=== PATIENT | male | born 1990 | race African-American/Black ===

== ENCOUNTER 2017-12-21 23:26 | Emergency (ER) | payer SELFPAY ==
[2017-12-21 23:47] VITALS: BP 105/72; PULSE 53; O2SAT 99
[2017-12-22] MEDS: Sodium Chloride 0.9% 1000 ML 1,000 ML IV STA ×2 (00:09→01:35)
[2017-12-22] MEDS ORDERED: Sodium Chloride 0.9% 1000 ML 0 ML ONE (00:10)
--- NOTE | 2017-12-22 00:12 | ERPHSYRPT ---
- History of Present Illness Time Seen by Provider: 12/22/17 00:00 Source: patient, police Exam Limitations: no limitations Patient Subjective Stated Complaint: weakness, hunger, soemone gave him 2 gummy bears laced with drugs Triage Nursing Assessment: Pt A&O x3, brought in by EMS and stated that he last ate yesterday morning, has been walking around for several days, someone gave him 2 gummy bears and he feels that they were laced with some kind of drug, he became suddenly weak and had to sit down in the road, he stated that he couldn' t move at that time, vitals wnl except for pulse of 45, pulses normal, tearful, doesn't appear to be in any distress at this time Physician History: 27 y/o male brought in by police after being found at the side of the road on the floor. Pt states that he was given gummies that made him feel confused, with gait instability, weakness and dizziness. Pt last ate yesterday morning. In the ER, patient feels better and more alert and oriented. Pt does not remember falling or hitting his head. Pt is very anxious about his brother and social issues. Timing/Duration: today Severity: mild Associated Symptoms: denies symptoms Allergies/Adverse Reactions: No Known Drug Allergies Allergy (Verified 12/21/17 23:47) Home Medications: No Reportable Medications [No Reported Medications] 12/21/17 [History] - Review of Systems Constitutional: Weakness, No Fever, No Chills Eyes: No Symptoms Ears, Nose, & Throat: No Symptoms Respiratory: No Cough, No Dyspnea Cardiac: No Chest Pain, No Edema, No Syncope Abdominal/Gastrointestinal: No Abdominal Pain, No Nausea, No Vomiting, No Diarrhea Genitourinary Symptoms: No Dysuria Musculoskeletal: No Back Pain, No Neck Pain Skin: No Rash Neurological: No Dizziness, No Focal Weakness, No Sensory Changes Psychological: No Symptoms Endocrine: No Symptoms All Other Systems: Reviewed and Negative - Past Medical History Pertinent Past Medical History: Yes Psycho-Social History: Depression - Past Surgical History Past Surgical History: No - Social History Smoking Status: Current every day smoker How long have you smoked: 11 years Exposure to second hand smoke: Yes Drug Use: marijuana Patient Lives Alone: No - Nursing Vital Signs Nursing Vital Signs: Initial Vital Signs Temperature 97.5 F 07/09/18 23:28 Pulse Rate 53 L 12/21/17 23:28 Blood Pressure 105/72 12/21/17 23:28 O2 Sat by Pulse Oximetry 99 12/21/17 23:28 Pain Scale Pain Intensity 0 - Physical Exam General Appearance: alert, anxiety Eye Exam: PERRL/EOMI, eyes nml inspection Ears, Nose, Throat Exam: normal ENT inspection, TMs normal, pharynx normal, moist mucous membranes Neck Exam: normal inspection, non-tender, supple, full range of motion Respiratory Exam: normal breath sounds, lungs clear, No respiratory distress Cardiovascular Exam: regular rate/rhythm, normal heart sounds, normal peripheral pulses Gastrointestinal/Abdomen Exam: soft, normal bowel sounds, No tenderness, No mass Back Exam: normal inspection, normal range of motion, No CVA tenderness, No vertebral tenderness Extremity Exam: normal inspection, normal range of motion, pelvis stable Neurologic Exam: alert, oriented x 3, cooperative, normal mood/affect, nml cerebellar function, nml station & gait, sensation nml, No motor deficits Skin Exam: normal color, warm, dry, No rash Lymphatic Exam: No adenopathy SpO2: 99 Oxygen Delivery: Room Air - Course Nursing assessment & vital signs reviewed: Yes EKG Interpreted by Me: Sinus Bello, NORMAL AXIS, NORMAL INTERVALS, NORMAL QRS, NORMAL ST-T Ordered Tests: Active Orders 24 hr Category Date Time Status EKG-ER Only STAT Care 12/22/17 00:12 Active HEAD WITHOUT CONTRAST [CT] Stat Exams 12/22/17 00:07 Taken ACETAMINOPHEN Stat Lab 12/22/17 00:22 Completed CBC W DIFF Stat Lab 12/22/17 00:22 Completed CK-Creatinine Phosphokinase Stat Lab 12/22/17 00:22 Completed CMP Stat Lab 12/22/17 00:22 Completed CULTURE,URINE Stat Lab 12/22/17 00:10 Received ETHYL ALCOHOL Stat Lab 12/22/17 00:22 Completed MAGNESIUM Stat Lab 12/22/17 00:22 Completed SALICYLATE Stat Lab 12/22/17 00:22 Completed TROPONIN Q3H Lab 12/22/17 00:22 Received TROPONIN Q3H Lab 12/22/17 03:15 Ordered TROPONIN Q3H Lab 12/22/17 06:15 Ordered TROPONIN Q3H Lab 12/22/17 09:15 Ordered TROPONIN Q3H Lab 12/22/17 12:15 Ordered TROPONIN Q3H Lab 12/22/17 15:15 Ordered TROPONIN Q3H Lab 12/22/17 18:15 Ordered TROPONIN Q3H Lab 12/22/17 21:15 Ordered UA W/ MICROSCOPIC Stat Lab 12/22/17 00:10 Completed Urine Triage Profile Stat Lab 12/22/17 00:10 Completed Medication Summary Discontinued Medications Generic Name Dose Route Start Last Admin Trade Name Rajni PRN Reason Stop Dose Admin Sodium Chloride 1,000 mls @ 999 mls/hr 12/22/17 00:07 Sodium Chloride 0.9% 1000 Ml IV 12/22/17 01:07 .Q1H1M STA Sodium Chloride Confirm 12/22/17 00:10 Sodium Chloride 0.9% 1000 Ml Administered 12/22/17 00:11 Dose 1,000 mls @ ud .ROUTE .K-MED ONE Lab/Rad Data: Laboratory Result Diagrams 12/22/17 00:22 12/22/17 00:22 Laboratory Results 12/22/17 12/22/17 12/22/17 Range/Units 00:22 00:22 00:10 WBC 7.4 (4.0-10.5) K/mm3 RBC 4.78 (4.1-5.6) M/mm3 Hgb 14.0 (12.5-18.0) gm/dl Hct 42.7 (42-50) % MCV 89.3 (78-100) fl MCH 29.3 (26-32) pg MCHC 32.8 (32-36) g/dl RDW 13.8 (11.5-14.0) % Plt Count 159 (150-450) K/mm3 MPV 9.7 H (6-9.5) fl Gran % 59.0 (36.0-66.0) % Eos # (Auto) 0.10 (0-0.5) Absolute Lymphs (auto) 2.13 (1.0-4.6) Absolute Monos (auto) 0.78 (0.0-1.3) Lymphocytes % 28.9 (24.0-44.0) % Monocytes % 10.6 (0.0-12.0) % Eosinophils % 1.4 (0.00-5.0) % Basophils % 0.1 (0.0-0.4) % Absolute Granulocytes 4.36 (1.4-6.9) Basophils # 0.01 (0-0.4) Sodium 144 (137-145) mmol/L Potassium 3.5 (3.5-5.1) mmol/L Chloride 109 H (98-107) mmol/L Carbon Dioxide 26 (22-30) mmol/L Anion Gap 12.5 (5-15) MEQ/L BUN 11 (9-20) mg/dL Creatinine 1.13 (0.66-1.25) mg/dL Estimated GFR > 60.0 ML/MIN Glucose 94 (74-106) mg/dL Calcium 9.4 (8.4-10.2) mg/dL Magnesium 2.0 (1.6-2.3) mg/dL Total Bilirubin 0.70 (0.2-1.3) mg/dL AST 23 (17-59) U/L ALT 25 (0-50) U/L Alkaline Phosphatase 53 (38-126) U/L Creatine Kinase 250 H (55-170) U/L Serum Total Protein 7.2 (6.3-8.2) g/dL Albumin 4.4 (3.5-5.0) g/dL Ur Collection Type Urine Color (YELLOW) Urine Appearance (CLEAR) Urine pH (5-6) Ur Specific Bluford (1.005-1.025) Urine Protein (Negative) Urine Ketones (NEGATIVE) Urine Blood (0-5) Anil/ul Urine Nitrite (NEGATIVE) Urine Bilirubin (NEGATIVE) Urine Urobilinogen (0-1) mg/dL Ur Leukocyte Esterase (NEGATIVE) Urine Microscopic WBC (0-5) /HPF Ur Epithelial Cells (FEW) /HPF Calcium Oxalate Crystal (NEGATIVE) /HPF Urine Bacteria (NEGATIVE) /HPF Urine Mucus (NEGATIVE) /HPF Urine Culture Reflexed (NO) Urine Glucose (NEGATIVE) mg/dL Salicylates < 1.0 L (2-20) mg/dL Urine Opiates Level NEGATIVE (NEGATIVE) Ur Methadone NEGATIVE (NEGATIVE) Acetaminophen < 10 L (10-30) ug/ml Urine Barbiturates NEGATIVE (NEGATIVE) Ur Phencyclidine (PCP) NEGATIVE (NEGATIVE) Urine Amphetamine NEGATIVE (NEGATIVE) U Benzodiazepine Level POSITIVE (NEGATIVE) Urine Cocaine NEGATIVE (NEGATIVE) Urine Marijuana (THC) POSITIVE (NEGATIVE) Ethyl Alcohol < 10 (0-10) mg/dL Specimen Received 12/22/17 Range/Units 00:10 WBC (4.0-10.5) K/mm3 RBC (4.1-5.6) M/mm3 Hgb (12.5-18.0) gm/dl Hct (42-50) % MCV (78-100) fl MCH (26-32) pg MCHC (32-36) g/dl RDW (11.5-14.0) % Plt Count (150-450) K/mm3 MPV (6-9.5) fl Gran % (36.0-66.0) % Eos # (Auto) (0-0.5) Absolute Lymphs (auto) (1.0-4.6) Absolute Monos (auto) (0.0-1.3) Lymphocytes % (24.0-44.0) % Monocytes % (0.0-12.0) % Eosinophils % (0.00-5.0) % Basophils % (0.0-0.4) % Absolute Granulocytes (1.4-6.9) Basophils # (0-0.4) Sodium (137-145) mmol/L Potassium (3.5-5.1) mmol/L Chloride (98-107) mmol/L Carbon Dioxide (22-30) mmol/L Anion Gap (5-15) MEQ/L BUN (9-20) mg/dL Creatinine (0.66-1.25) mg/dL Estimated GFR ML/MIN Glucose (74-106) mg/dL Calcium (8.4-10.2) mg/dL Magnesium (1.6-2.3) mg/dL Total Bilirubin (0.2-1.3) mg/dL AST (17-59) U/L ALT (0-50) U/L Alkaline Phosphatase (38-126) U/L Creatine Kinase (55-170) U/L Serum Total Protein (6.3-8.2) g/dL Albumin (3.5-5.0) g/dL Ur Collection Type CCMS Urine Color YELLOW (YELLOW) Urine Appearance CLEAR (CLEAR) Urine pH 6.0 (5-6) Ur Specific Bluford 1.025 (1.005-1.025) Urine Protein TRACE (Negative) Urine Ketones NEGATIVE (NEGATIVE) Urine Blood NEGATIVE (0-5) Anil/ul Urine Nitrite NEGATIVE (NEGATIVE) Urine Bilirubin NEGATIVE (NEGATIVE) Urine Urobilinogen NORMAL (0-1) mg/dL Ur Leukocyte Esterase TRACE (NEGATIVE) Urine Microscopic WBC 15-25 (0-5) /HPF Ur Epithelial Cells RARE (FEW) /HPF Calcium Oxalate Crystal 50-99 (NEGATIVE) /HPF Urine Bacteria RARE (NEGATIVE) /HPF Urine Mucus MANY (NEGATIVE) /HPF Urine Culture Reflexed YES (NO) Urine Glucose NEGATIVE (NEGATIVE) mg/dL Salicylates (2-20) mg/dL Urine Opiates Level (NEGATIVE) Ur Methadone (NEGATIVE) Acetaminophen (10-30) ug/ml Urine Barbiturates (NEGATIVE) Ur Phencyclidine (PCP) (NEGATIVE) Urine Amphetamine (NEGATIVE) U Benzodiazepine Level (NEGATIVE) Urine Cocaine (NEGATIVE) Urine Marijuana (THC) (NEGATIVE) Ethyl Alcohol (0-10) mg/dL Specimen Received 12-22-17 0100 - Progress Progress: improved Progress Note: 12/22/17 01:12 The patient feels better after receiving NS fluids. The CT scan head is within normal limits. The labs are within normal limits except for a slightly elevated CPK and positive marijuana in his urine. Pt will be d/c home with a diagnosis of substance use. - Departure Time of Disposition: 01:13 Departure Disposition: Home Clinical Impression: Substance use disorder Condition: Stable Critical Care Time: No Referrals: DOCTOR,NO FAMILY [Primary Care Provider] - Instructions: Polysubstance Abuse (DC) Additional Instructions: Return to the ER if you should have worsening dizziness, weakness, muscle aches , chest pain or shortness of breath.
[2017-12-22 00:24] LABS: BASOPHIL % 0.1 % (0.0-0.4); Basophil (Absolute #) 0.01 (0-0.4); Eosinophil % 1.4 % (0.00-5.0); Granulocyte Absolute (ANC) 4.36 (1.4-6.9); Hematocrit 42.7 % (42-50); Lymphocyte (Absolute #) 2.13 (1.0-4.6); Lymphocytes % 28.9 % (24.0-44.0); Mean Cell Volume 89.3 fl (78-100); Mean Corpuscular Hemoglobin 29.3 pg (26-32); Mean Corpuscular Hgb Concent. 32.8 g/dl (32-36); Mean Platelet Volume 9.7 fl (6-9.5); Monocyte (Absolute #) 0.78 (0.0-1.3); Monocytes % 10.6 % (0.0-12.0); Platelet Count 159 K/mm3 (150-450); Red Blood Count 4.78 M/mm3 (4.1-5.6); Red Cell Distribution Width 13.8 % (11.5-14.0); White Blood Count 7.4 K/mm3 (4.0-10.5)
[2017-12-22 00:50] LABS: ALBUMIN 4.4 g/dL (3.5-5.0); ALKALINE PHOSPHATASE 53 U/L (38-126); ANION GAP 12.5 MEQ/L (5-15); BLOOD UREA NITROGEN 11 mg/dL (9-20); CHLORIDE 109 mmol/L (98-107); CK-Creatinine Phosphokinase 250 U/L (55-170); Calcium 9.4 mg/dL (8.4-10.2); Carbon Dioxide 26 mmol/L (22-30); Creatinine 1 1.13 mg/dL (0.66-1.25); Glucose 94 mg/dL (74-106); Potassium 3.5 mmol/L (3.5-5.1); SGOT/AST 23 U/L (17-59); SGPT/ALT 25 U/L (0-50); SODIUM 144 mmol/L (137-145); Total Protein 7.2 g/dL (6.3-8.2)
[2017-12-22 00:54] LABS: Amphetamine,Urine NEGATIVE (NEGATIVE); Barbiturate,Urine NEGATIVE (NEGATIVE); Benzodiazepine,Urine POSITIVE (NEGATIVE); Cocaine,Urine NEGATIVE (NEGATIVE); Methadone,Urine NEGATIVE (NEGATIVE); Opiate,Urine NEGATIVE (NEGATIVE); PCP,Urine NEGATIVE (NEGATIVE); THC,Urine POSITIVE (NEGATIVE)
[2017-12-22 00:58] LABS: ACETAMINOPHEN < 10 ug/ml (10-30); ETHYL ALCOHOL < 10 mg/dL (0-10); SALICYLATE < 1.0 mg/dL (2-20)
[2017-12-22 01:04] LABS: Appearance CLEAR (CLEAR)
[2017-12-22 01:05] LABS: Bilirubin NEGATIVE (NEGATIVE); Blood NEGATIVE Ery/ul (0-5); Glucose NEGATIVE (NEGATIVE); Ketones NEGATIVE (NEGATIVE); Leukocyte Esterase TRACE (NEGATIVE); Nitrite NEGATIVE (NEGATIVE); Protein,Urine Dip TRACE (Negative); Specific Gravity 1.025 (1.005-1.025); Urobilinogen NORMAL mg/dL (0-1)
[2017-12-22 01:06] LABS: Bacteria RARE /HPF (NEGATIVE); Epithelial Cells RARE /HPF (FEW); Mucus MANY /HPF (NEGATIVE); WBC 15-25 /HPF (0-5)
--- NOTE | 2017-12-22 17:19 | XRAY ---
Exam: CT of the head without IV contrast from 12/22/2017. CTDI: 69.79 Comparison: None. Indication: 27-year-old male with altered mental status/memory loss, confusion/disorientation. Technique: Non-IV contrast axial images were obtained through the brain. Reconstructed coronal and sagittal images were created and reviewed. Findings: The ventricles appear of normal size. No focal mass effect or midline shift is seen. No acute intra-cranial bleed or abnormal extra-axial fluid collection is seen. The howard matter-white matter interfaces appear unremarkable. No low attenuation territorial infarct is seen. The cortical sulci and basilar cisterns appear unremarkable. The calvarium of the skull appears intact. The visualized paranasal sinuses and mastoid air cells appear clear. The globes of each eye and retro-orbital regions appear unremarkable bilaterally. Impression: 1. No acute intracranial bleed or other acute intracranial process is seen.
== END 2017-12-22 01:36 | disposition home or self-care (01) ==
LOC: ED 23:26
DX: F19.99 Other psychoactive substance use, unspecified with unspecified psychoactive substance-induced disorder (principal); R53.1 Weakness; R42 Dizziness and giddiness; R41.0 Disorientation, unspecified
CPT/HCPCS: 70450; 80053; 80307; 81000; 82550; 83735; 85025; 87086; 93005; 99284; G0481; G0480

== ENCOUNTER 2020-12-18 19:53 | Emergency (ER) | payer OTHER ==
--- NOTE | 2020-12-18 20:05 | ERPHSYRPT ---
- History of Present Illness Time Seen by Provider: 12/18/20 20:05 Source: patient, police Exam Limitations: no limitations Physician History: This is a 30-year-old -[place] gentleman resident of the senior living who presents to the emergency department via EMS for allegedly consuming approximately 200 mL of diluted peroxide the protein remover paper cleaner and white in her within an hour prior to arrival to the emergency department. However, patient is denying that he consumed this liquid. He states that there was another inmate that made the claim to the cargo checker. Poison Control Center was called. We we called the Poison Control Center to obtain plan of care for this patient. Poison control center stated to assume that the patient did consume this liquid. We need to draw CBC CMP BNP and perform an EKG. Do a toxicology screen and may possibly require GI consultation for determination whether or not this patient will require a endoscopy. Patient denies chest pain. He denies abdominal pain. He states that he is not suicidal although he is upset that he and his girlfriend have broken up. 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 Timing/Duration: today, other (Patient denies any symptoms) Associated Symptoms: denies symptoms Allergies/Adverse Reactions: No Known Drug Allergies Allergy (Verified 12/18/20 20:06) Home Medications: Sertraline HCl [Zoloft] 150 mg PO DAILY 12/18/20 [History] Travel Risk - International Travel Have you traveled outside of the country in past 3 weeks: No - Coronavirus Screening Are you exhibiting any of the following symptoms?: No Close contact with a COVID-19 positive Pt in past 14-21 Days: No - Review of Systems Constitutional: No Symptoms Eyes: No Symptoms Ears, Nose, & Throat: No Symptoms Respiratory: No Symptoms Cardiac: No Symptoms Abdominal/Gastrointestinal: No Symptoms Genitourinary Symptoms: No Symptoms Musculoskeletal: No Symptoms Skin: No Symptoms Neurological: No Symptoms Psychological: No Symptoms Endocrine: No Symptoms Hematologic/Lymphatic: No Symptoms Immunological/Allergic: No Symptoms All Other Systems: Reviewed and Negative - Past Medical History Pertinent Past Medical History: Yes Psycho-Social History: Depression - Past Surgical History Past Surgical History: No - Social History Smoking Status: Current every day smoker How long have you smoked: 11 years Exposure to second hand smoke: Yes Drug Use: marijuana Patient Lives Alone: No - Nursing Vital Signs Nursing Vital Signs: Initial Vital Signs Temperature 98.3 F 12/18/20 20:07 Pulse Rate 84 12/18/20 20:07 Blood Pressure 121/77 12/18/20 20:07 O2 Sat by Pulse Oximetry 96 12/18/20 20:07 - Physical Exam General Appearance: no apparent distress, alert Eye Exam: PERRL/EOMI, eyes nml inspection Ears, Nose, Throat Exam: normal ENT inspection, moist mucous membranes Neck Exam: normal inspection, non-tender, supple, full range of motion Respiratory Exam: normal breath sounds, lungs clear, airway intact, No chest tenderness, No respiratory distress Cardiovascular Exam: regular rate/rhythm, normal heart sounds, normal peripheral pulses Gastrointestinal/Abdomen Exam: soft, normal bowel sounds, No tenderness Rectal Exam: not done Back Exam: normal inspection, normal range of motion, vertebral tenderness, No CVA tenderness Extremity Exam: normal inspection, normal range of motion, pelvis stable Neurologic Exam: alert, oriented x 3, cooperative, pharmaceutical process engineer II-XII nml as tested, normal mood/affect, nml cerebellar function, nml station & gait, sensation nml Skin Exam: normal color, warm, dry Lymphatic Exam: No adenopathy SpO2 Interpretation: normal O2 Delivery: Room Air - Course Nursing assessment & vital signs reviewed: Yes EKG Interpreted by Me: RATE (74), Sinus Rhythm, NORMAL AXIS, NORMAL INTERVALS, NORMAL QRS, NORMAL ST-T, Other (There are no acute ischemic changes on today's EKG. There is no comparison EKG available.) Ordered Tests: Active Orders 24 hr Category Date Time Status Clean Catch Urine Specimen STAT Care 12/18/20 20:24 Active EKG-ER Only STAT Care 12/18/20 20:24 Active IV Insertion STAT Care 12/18/20 20:24 Active Pulse Oximetry (ED) STAT Care 12/18/20 20:24 Active ACETAMINOPHEN Stat Lab 12/18/20 20:35 Completed BNP [NT PRO BNP] Stat Lab 12/18/20 20:35 Completed CBC W DIFF Stat Lab 12/18/20 20:35 Completed CMP Stat Lab 12/18/20 20:35 Completed ETHYL ALCOHOL Stat Lab 12/18/20 20:35 Completed SALICYLATE Stat Lab 12/18/20 20:35 Completed UA W/RFX UR CULTURE Stat Lab 12/18/20 20:47 Completed Urine Triage Profile Stat Lab 12/18/20 20:47 Completed Medication Summary Discontinued Medications Generic Name Dose Route Start Last Admin Trade Name Rajni PRN Reason Stop Dose Admin Sodium Chloride 1,000 mls @ 999 mls/hr 12/18/20 20:24 12/18/20 21:56 Sodium Chloride 0.9% 1000 Ml IV 12/18/20 21:24 Infused .Q1H1M STA Infusion Sodium Chloride Confirm 12/18/20 20:27 Sodium Chloride 0.9% 1000 Ml Administered 12/18/20 20:28 Dose 1,000 mls @ ud .ROUTE .STK-MED ONE Lab/Rad Data: Laboratory Result Diagrams 12/18/20 20:35 12/18/20 20:35 Laboratory Results 12/18/20 12/18/20 12/18/20 Range/Units 20:47 20:47 20:35 WBC (4.0-10.5) K/mm3 RBC (4.1-5.6) M/mm3 Hgb (12.5-18.0) gm/dl Hct (42-50) % MCV (78-100) fl MCH (26-32) pg MCHC (32-36) g/dl RDW (11.5-14.0) % Plt Count (150-450) K/mm3 MPV (7.5-11.0) fl Gran % (36.0-66.0) % Eos # (Auto) (0-0.5) Absolute Lymphs (auto) (1.0-4.6) Absolute Monos (auto) (0.0-1.3) Lymphocytes % (24.0-44.0) % Monocytes % (0.0-12.0) % Eosinophils % (0.00-5.0) % Basophils % (0.0-0.4) % Absolute Granulocytes (1.4-6.9) Basophils # (0-0.4) Sodium (137-145) mmol/L Potassium (3.5-5.1) mmol/L Chloride (98-107) mmol/L Carbon Dioxide (22-30) mmol/L Anion Gap (5-15) MEQ/L BUN (9-20) mg/dL Creatinine (0.66-1.25) mg/dL Estimated GFR ML/MIN Glucose (74-106) mg/dL Calcium (8.4-10.2) mg/dL Total Bilirubin (0.2-1.3) mg/dL AST (17-59) U/L ALT (0-50) U/L Alkaline Phosphatase (38-126) U/L NT-Pro-B Natriuret Pep 30.4 (0-450) pg/mL Serum Total Protein (6.3-8.2) g/dL Albumin (3.5-5.0) g/dL Urine Color YUAN (YELLOW) Urine Appearance SLIGHTLY CLOUDY (CLEAR) Urine pH 5.0 (5-6) Ur Specific Dolph 1.030 (1.005-1.025) Urine Protein 100 (Negative) Urine Ketones NEGATIVE (NEGATIVE) Urine Blood NEGATIVE (0-5) Anil/ul Urine Nitrite NEGATIVE (NEGATIVE) Urine Bilirubin NEGATIVE (NEGATIVE) Urine Urobilinogen 4 (0-1) mg/dL Ur Leukocyte Esterase NEGATIVE (NEGATIVE) Urine WBC (Auto) 3-5 (0-5) /HPF Urine RBC (Auto) NONE (0-2) /HPF U Epithel Cells (Auto) NONE (FEW) /HPF Urine Bacteria (Auto) NONE (NEGATIVE) /HPF Urine Mucus (Auto) MANY (NEGATIVE) /HPF Urine Culture Reflexed NO (NO) Urine Glucose NEGATIVE (NEGATIVE) mg/dL Salicylates (2-20) mg/dL Urine Opiates Level NEGATIVE (NEGATIVE) Ur Methadone NEGATIVE (NEGATIVE) Acetaminophen (10-30) ug/ml Urine Barbiturates NEGATIVE (NEGATIVE) Ur Phencyclidine (PCP) NEGATIVE (NEGATIVE) Urine Amphetamine NEGATIVE (NEGATIVE) U Benzodiazepine Level NEGATIVE (NEGATIVE) Urine Cocaine NEGATIVE (NEGATIVE) Urine Marijuana (THC) NEGATIVE (NEGATIVE) Ethyl Alcohol (0-10) mg/dL 12/18/20 12/18/20 Range/Units 20:35 20:35 WBC 8.9 (4.0-10.5) K/mm3 RBC 4.76 (4.1-5.6) M/mm3 Hgb 13.8 (12.5-18.0) gm/dl Hct 42.5 (42-50) % MCV 89.3 (78-100) fl MCH 29.0 (26-32) pg MCHC 32.5 (32-36) g/dl RDW 13.0 (11.5-14.0) % Plt Count 174 (150-450) K/mm3 MPV 10.1 (7.5-11.0) fl Gran % 75.0 H (36.0-66.0) % Eos # (Auto) 0.04 (0-0.5) Absolute Lymphs (auto) 1.45 (1.0-4.6) Absolute Monos (auto) 0.72 (0.0-1.3) Lymphocytes % 16.3 L (24.0-44.0) % Monocytes % 8.1 (0.0-12.0) % Eosinophils % 0.5 (0.00-5.0) % Basophils % 0.1 (0.0-0.4) % Absolute Granulocytes 6.66 (1.4-6.9) Basophils # 0.01 (0-0.4) Sodium 137 (137-145) mmol/L Potassium 3.7 (3.5-5.1) mmol/L Chloride 100 (98-107) mmol/L Carbon Dioxide 24 (22-30) mmol/L Anion Gap 16.6 H (5-15) MEQ/L BUN 15 (9-20) mg/dL Creatinine 0.90 (0.66-1.25) mg/dL Estimated GFR > 60.0 ML/MIN Glucose 97 (74-106) mg/dL Calcium 9.5 (8.4-10.2) mg/dL Total Bilirubin 0.70 (0.2-1.3) mg/dL AST 49 (17-59) U/L ALT 78 H (0-50) U/L Alkaline Phosphatase 70 (38-126) U/L NT-Pro-B Natriuret Pep (0-450) pg/mL Serum Total Protein 8.1 (6.3-8.2) g/dL Albumin 4.8 (3.5-5.0) g/dL Urine Color (YELLOW) Urine Appearance (CLEAR) Urine pH (5-6) Ur Specific Dolph (1.005-1.025) Urine Protein (Negative) Urine Ketones (NEGATIVE) Urine Blood (0-5) Anil/ul Urine Nitrite (NEGATIVE) Urine Bilirubin (NEGATIVE) Urine Urobilinogen (0-1) mg/dL Ur Leukocyte Esterase (NEGATIVE) Urine WBC (Auto) (0-5) /HPF Urine RBC (Auto) (0-2) /HPF U Epithel Cells (Auto) (FEW) /HPF Urine Bacteria (Auto) (NEGATIVE) /HPF Urine Mucus (Auto) (NEGATIVE) /HPF Urine Culture Reflexed (NO) Urine Glucose (NEGATIVE) mg/dL Salicylates < 1.0 L (2-20) mg/dL Urine Opiates Level (NEGATIVE) Ur Methadone (NEGATIVE) Acetaminophen < 10 L (10-30) ug/ml Urine Barbiturates (NEGATIVE) Ur Phencyclidine (PCP) (NEGATIVE) Urine Amphetamine (NEGATIVE) U Benzodiazepine Level (NEGATIVE) Urine Cocaine (NEGATIVE) Urine Marijuana (THC) (NEGATIVE) Ethyl Alcohol < 10 (0-10) mg/dL - Progress Progress: unchanged, re-examined Progress Note: 12/18/20 22:49 Medical decision making: This patient adamantly denies any ingestion of any fluids. His friend had contacted the jailers because he was concerned that the patient was so sad and tearful that he thought he might have done something to himself. However, the patient states he is not suicidal and that he did not cut himself. They were wrestling to get a bottle out of his hands. I reevaluated the patient. He has no chest pain. He has no shortness of breath. He has no abdominal pain. The patient has been here for approximately 3 hours and has no complaints of pain. He is drinking clear liquids. I reevaluated his throat and I did not see any pharyngeal blistering or oral mucosal blistering. There is no redness present. My plan is to discharge the patient to home if he tolerates drinking clear liquids without any pain, nausea or vomiting. The patient denies any ingestion of fluid or suicide attempt. This was witnessed by the officer here at the hospital in the patient's room as well as the nurses. 12/18/20 22:51 Counseled pt/family regarding: lab results, diagnosis, need for follow-up - Departure Departure Disposition: [facility] Clinical Impression: Well adult health check Condition: Stable Critical Care Time: No Referrals: DOCTOR,NO FAMILY [Primary Care Provider] - Additional Instructions: Drink plenty of clear liquids. Return to the emergency department if you began having symptoms of sore throat, nausea vomiting or abdominal pain.
[2020-12-18] MEDS ORDERED: Sodium Chloride 0.9% 1000 ML 1,000 ML IV STA (20:24)
[2020-12-18] MEDS ORDERED: Sodium Chloride 0.9% 1000 ML 1,000 ML ONE (20:27)
[2020-12-18 20:54] LABS: ACETAMINOPHEN < 10 ug/ml (10-30); ALBUMIN 4.8 g/dL (3.5-5.0); ALKALINE PHOSPHATASE 70 U/L (38-126); ANION GAP 16.6 MEQ/L (5-15); BLOOD UREA NITROGEN 15 mg/dL (9-20); CHLORIDE 100 mmol/L (98-107); Calcium 9.5 mg/dL (8.4-10.2); Carbon Dioxide 24 mmol/L (22-30); EST GLOMERULAR FILTRATION RATE > 60.0 ML/MIN; ETHYL ALCOHOL < 10 mg/dL (0-10); Glucose 97 mg/dL (74-106); Potassium 3.7 mmol/L (3.5-5.1); SALICYLATE < 1.0 mg/dL (2-20); SGOT/AST 49 U/L (17-59); SGPT/ALT 78 U/L (0-50); SODIUM 137 mmol/L (137-145); Total Protein 8.1 g/dL (6.3-8.2)
[2020-12-18 21:03] LABS: Absolute Neutrophil Ct (ANC) 6.66 (1.4-6.9); BASOPHIL % 0.1 % (0.0-0.4); Basophil (Absolute #) 0.01 (0-0.4); Eosinophil % 0.5 % (0.00-5.0); Eosinophil (Absolute #) 0.04 (0-0.5); Hematocrit 42.5 % (42-50); Hemoglobin 13.8 gm/dl (12.5-18.0); Lymphocyte (Absolute #) 1.45 (1.0-4.6); Lymphocytes % 16.3 % (24.0-44.0); Mean Cell Volume 89.3 fl (78-100); Mean Corpuscular Hgb Concent. 32.5 g/dl (32-36); Mean Platelet Volume 10.1 fl (7.5-11.0); Monocyte (Absolute #) 0.72 (0.0-1.3); Monocytes % 8.1 % (0.0-12.0); Platelet Count 174 K/mm3 (150-450); Red Blood Count 4.76 M/mm3 (4.1-5.6); White Blood Count 8.9 K/mm3 (4.0-10.5)
[2020-12-18 21:31] LABS: Appearance SLIGHTLY CLOUDY (CLEAR); Bilirubin NEGATIVE (NEGATIVE); Blood NEGATIVE Ery/ul (0-5); Glucose NEGATIVE (NEGATIVE); Ketones NEGATIVE (NEGATIVE); Leukocyte Esterase NEGATIVE (NEGATIVE); Mucus MANY /HPF (NEGATIVE); Nitrite NEGATIVE (NEGATIVE); Protein,Urine Dip 100 (Negative); Urobilinogen 4 mg/dL (0-1)
[2020-12-18 22:06] LABS: Amphetamine,Urine NEGATIVE (NEGATIVE); Barbiturate,Urine NEGATIVE (NEGATIVE); Benzodiazepine,Urine NEGATIVE (NEGATIVE); Cocaine,Urine NEGATIVE (NEGATIVE); Methadone,Urine NEGATIVE (NEGATIVE); Opiate,Urine NEGATIVE (NEGATIVE); PCP,Urine NEGATIVE (NEGATIVE); THC,Urine NEGATIVE (NEGATIVE)
[2020-12-18 22:59] VITALS: BP 121/77; PULSE 72; O2SAT 97
== END 2020-12-18 23:04 | disposition home or self-care (01) ==
LOC: ED 19:53 → EEVIPCON 19:53 → ED 23:04
DX: Z03.89 Encounter for observation for other suspected diseases and conditions ruled out (principal); Z79.899 Other long term (current) drug therapy
CPT/HCPCS: 36000; 36415; 80053; 80307; 81001; 83880; 85025; 93005; 94760; 96360; 99284; G0480

== ENCOUNTER 2021-12-09 20:15 | Emergency (ER) | payer OTHER ==
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
[2021-12-09 20:30] VITALS: BP 117/74; PULSE 69; O2SAT 100
[2021-12-09] MEDS ORDERED: MOTRIN 600 MG PO ONE (20:46)
[2021-12-09] MEDS ORDERED: NORCO 5/325 MG PO ONE (20:46)
[2021-12-09] MEDS ORDERED: MOTRIN 600 MG ONE (20:49)
--- NOTE | 2021-12-10 08:43 | XRAY ---
Indication: Pain following injury. Comparison: None 3 view left wrist obtained. No bony, articular, or soft tissue abnormalities.
== END 2021-12-09 21:00 | disposition home or self-care (01) ==
LOC: ED 20:15
DX: S63.502A Unspecified sprain of left wrist, initial encounter (principal); X50.0XXA Overexertion from strenuous movement or load, initial encounter; Y93.43 Activity, gymnastics; M25.532 Pain in left wrist; Z72.0 Tobacco use; Z79.899 Other long term (current) drug therapy; Z28.310 Unvaccinated for COVID-19
CPT/HCPCS: 73110; 99283; A9270-GY

== ENCOUNTER 2022-07-24 18:07 | Emergency (ER) | payer OTHER ==
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
[2022-07-24] MEDS ORDERED: BACIGUENT PACKET TP ONE ×2 (19:30→19:55)
[2022-07-24] MEDS ORDERED: MORPHINE SULFATE 2 MG INJ IV ONE (19:34)
[2022-07-24] MEDS ORDERED: Sodium Chloride 0.9% 1000 ML 1,000 ML IV STA (19:35)
[2022-07-24] MEDS ORDERED: MORPHINE SULFATE 2 MG INJ ONE (19:44)
[2022-07-24] MEDS ORDERED: Sodium Chloride 0.9% 1000 ML 1,000 ML ONE (19:44)
[2022-07-24 20:58] VITALS: BP 117/93; PULSE 64; O2SAT 98
== END 2022-07-24 20:57 | disposition home or self-care (01) ==
LOC: ED 18:07
DX: T23.261A Burn of second degree of back of right hand, initial encounter (principal); T23.241A Burn of second degree of multiple right fingers (nail), including thumb, initial encounter; T23.251A Burn of second degree of right palm, initial encounter; X08.8XXA Exposure to other specified smoke, fire and flames, initial encounter; Y93.G1 Activity, food preparation and clean up; Z28.310 Unvaccinated for COVID-19; Z72.0 Tobacco use
CPT/HCPCS: 36000; 96360; 96374; 99284; J2270; A9270-GY